=== PATIENT | male | born 1995 | race Hispanic/Latino ===

== ENCOUNTER 2017-11-17 17:40 | Emergency (ER) | payer OTHER, SELFPAY ==
[2017-11-17] MEDS: diphenhydrAMINE 50 MG CAP PO (19:42)
[2017-11-17] MEDS: ACETAMINOPHEN 325 MG TAB PO (19:42)
== END 2017-11-17 19:52 | disposition home or self-care (01) ==
LOC: M ED 17:40
DX: L25.8 Unspecified contact dermatitis due to other agents (principal); F17.210 Nicotine dependence, cigarettes, uncomplicated
CPT/HCPCS: 99283

== ENCOUNTER 2018-03-04 15:00 | Emergency (ER) | payer OTHER ==
[~2018-03-04] VITALS: Ht 177.8 cm; Wt 79.5 kg
[2018-03-04 15:01] VITALS: BP 142/66
[2018-03-04] MEDS ORDERED: KETOROLAC TROMETHAMINE 10 MG TAB PO ONE (15:15)
[2018-03-04] MEDS ORDERED: NAPR-50 PO (15:53)
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
== END 2018-03-04 16:02 | disposition home or self-care (01) ==
LOC: M ED 15:00
DX: S43.101A Unspecified dislocation of right acromioclavicular joint, initial encounter (principal); V43.52XA Car driver injured in collision with other type car in traffic accident, initial encounter; Y92.410 Unspecified street and highway as the place of occurrence of the external cause

== ENCOUNTER 2018-03-06 14:03 | Emergency (ER) | payer OTHER ==
[~2018-03-06] VITALS: Ht 177.8 cm; Wt 79.5 kg
[~2018-03-06 14:03] MED LIST: NAPR-50 PO
[2018-03-06 17:31] VITALS: BP 125/68
[2018-03-06] MEDS ORDERED: PERC5TAB12 PO (17:57)
[2018-03-06] MEDS ORDERED: PERCOCET 5MG/325MG TAB PO ONE (18:00)
== END 2018-03-06 18:06 | disposition home or self-care (01) ==
LOC: M ED 14:03
DX: M79.601 Pain in right arm (principal); R53.1 Weakness

== ENCOUNTER 2018-04-26 12:22 | Inpatient (IN) | payer OTHER ==
[~2018-04-26] VITALS: Ht 177.8 cm; Wt 77.0 kg
[~2018-04-26 12:22] MED LIST changes: +PERC5TAB12 PO
[2018-04-26] MEDS ORDERED: NICOTINE 21MG/24HR 1 EA TRANSDERMAL TD ONE (13:15)
[2018-04-26] MEDS ORDERED: IBUPROFEN 600 MG TAB PO ONE (13:15)
[2018-04-26 13:46] LABS: HEMOGLOBIN 15.3 g/dl (13.5-17.5); MEAN CORPUSCULAR HEMOGLOBIN 29.3 pg (27.0-33.0); MEAN CORPUSCULAR HGB CONC 34.8 g/dl (32.0-36.5); MEAN CORPUSCULAR VOLUME 84.3 fl (80.0-96.0); PLATELET COUNT, AUTOMATED 273 10^3/uL (150-450); RED BLOOD COUNT 5.22 10^6/uL (4.30-6.10); WHITE BLOOD COUNT 6.2 10^3/uL (4.0-10.0)
[2018-04-26 14:10] LABS: AMPHETAMINES LEVEL URINE NEGATIVE (NEGATIVE); BARBITURATES URINE NEGATIVE (NEGATIVE); BENZODIAZEPINES URINE NEGATIVE (NEGATIVE); CANNABINOIDS URINE NEGATIVE (NEGATIVE); COCAINE METABOLITE URINE NEGATIVE (NEGATIVE); METHADONE URINE NEGATIVE (NEGATIVE); OPIATES URINE NEGATIVE (NEGATIVE); PHENCYCLIDINE URINE NEGATIVE (NEGATIVE)
[2018-04-26 14:43] LABS: ACETAMINOPHEN LEVEL < 2.0 UG/ML (10.0-30.0); ALBUMIN 4.2 GM/DL (3.2-5.2); ALT/SGPT 38 U/L (12-78); BILIRUBIN,DIRECT 0.3 MG/DL (0.0-0.2); BILIRUBIN,TOTAL 1.1 MG/DL (0.2-1.0); BLOOD UREA NITROGEN 13 MG/DL (7-18); CALCIUM LEVEL 8.7 MG/DL (8.5-10.1); CARBON DIOXIDE LEVEL 29 MEQ/L (21-32); CHLORIDE LEVEL 105 MEQ/L (98-107); CREATININE FOR GFR 0.97 MG/DL (0.70-1.30); ETHYL ALCOHOL (ETHANOL) < 0.003 % (0.000-0.010); GLOMERULAR FILTRATION RATE > 60.0 (>60); GLUCOSE, FASTING 78 MG/DL (70-100); POTASSIUM SERUM 4.3 MEQ/L (3.5-5.1); SALICYLATE LEVEL < 1.7 MG/DL (5.0-30.0); SODIUM LEVEL 140 MEQ/L (136-145); THYROID STIMULATING HORMONE 0.925 uIU/ML (0.358-3.740); TOTAL PROTEIN 7.6 GM/DL (6.4-8.2)
[2018-04-26] MEDS ORDERED: MAALOX 30 ML SUSP *UDC PO PRN (17:15)
[2018-04-26] MEDS ORDERED: traZODone 50 MG TAB PO PRN (17:15)
[2018-04-26] MEDS ORDERED: MOM 30ML SUSPENSION UDC PO PRN (17:15)
[2018-04-26] MEDS ORDERED: ACETAMINOPHEN TAB 650MG DOSE (2X325MG) PO PRN (17:15)
[2018-04-26 19:28] VITALS: BP 131/73
[2018-04-27 06:38] VITALS: BP 113/55
--- NOTE | 2018-04-27 09:25 | HPEPDOC ---
[facility] Medical History & Physical Date of Admission Apr 26, 2018 History and Physical PCP: [facility] ATTENDING: Dr. Sharon Sawyer HPI: 23yoM admitted to [facility] for unspecified depressive disorder, being medically examined today. No acute medical complaints today. Denies any fevers, chills, weakness, fatigue, GERARD, CP, SOB, cough, palpitations, abdominal pain, N/V/D or changes in bowel or bladder habits. PMHx: Anxiety depression H/O SI insomnia Chronic shoulder pain/AC separation, follows with [facility]. PSHX: Lt knee surgery SOCHX: Resides in: [facility] Marital Status: Kids: 1 Employment: active duty Tobacco use: 1-2 can chewing tobacco per day ETOH: 2 x per week 5-6 drinks Illicit Drugs: Marijuana, states none since 20yo. IV Drug Use: Denies Tattoos done unprofessionally: x1 FAMHX: Pt states he was adopted and does not know any FH Siblings: 5 half siblings Alive, none known Children: Alive, well ROS: As noted in HPI, otherwise 11pt ROS of systems reviewed and unremarkable. PE: GEN: 23yoM, appears stated age. Well-nourished, well developed. No acute distress. Alert and oriented x 3. Guarded, short responses, flat affect. HEENT: Normocephalic, atraumatic. Pupils are equal, round, and reactive to light. Extraocular movements are intact. No nystagmus appreciated. Sclera are nonicteric. Conjunctiva without injection. Nose midline. Nasal turbinates without bogginess. EACs both patent BL. TMs both visualized and heart with good cone of light, no bulging or erythema. No facial asymmetry. Moist mucous membranes. Dentition fair. Pharynx pink and moist, no cobblestoning. Neck suppl e, trachea midline. No lymphadenopathy or thyromegaly appreciated. CHEST: Regular rate and rhythm, +S1, +S2 LUNGS: Clear to auscultation bilaterally. No wheezes, rales, or rhonchi. Breathing appears symmetric and easy. Patient is speaking in full sentences. No accessory muscle use. ABD: Round, soft, non-tender, non-distended. +Bowel sounds throughout. No rebound or guarding. No costovertebral angle tenderness. EXT: Pulses 2+ bilaterally dorsalis pedis and radial. No lower extremity edema appreciated. SKIN: [place], dry, warm. Capillary refill <2sec. No rashes. NEURO: Alert and oriented x 3. Cranial nerves III-XII are intact. No focal deficits appreciated. EKG: pending A&P: 23yoM admitted to [facility] for unspecified depressive disorder, 1. Psych. Plan per Psychiatry. Obtain baseline EKG to assure the safety of psychiatric medications as they can prolong the QT interval. 2. Nicotine dependence. Patch available. 3. tattoo done unprofessionally. Pt declines HIV/Hepatitis screening. 4. Follow up with PCP on discharge. 5. Chronic shoulder pain. Continue Tylenol 650mg Q6hr as needed. Ibuprofen 600mg Q8hr as needed. Continue Outpt F/U with [facility]. Consider pain mgmt consultation if needed. 6. Staff member Ed present throughout exam. Vital Signs Vital Signs Date Time Temp Pulse Resp B/P (MAP) Pulse Ox O2 Delivery O2 Flow Rate FiO2 04/27/18 06:38 98.2 57 12 113/55 (74) 04/26/18 17:56 100 04/26/18 13:54 Room Air Laboratory Data Labs 24H Laboratory Tests 2 04/26/18 13:25: Urine Amphetamines Screen NEGATIVE, Urine Benzodiazepines Screen NEGATIVE, Urine Opiates Screen NEGATIVE, Urine Methadone Screen NEGATIVE, Urine Barbiturates Screen NEGATIVE, Urine Phencyclidine Screen NEGATIVE, Urine Cocaine Metabolite Screen NEGATIVE, Urine Cannabinoids Screen NEGATIVE 04/26/18 13:32: Nucleated Red Blood Cells % (auto) 0.0, Anion Gap 6L, Glomerular Filtration Rate > 60.0, Calcium Level 8.7, Aspartate Amino Transf (AST/SGOT) 20, Alanine Aminotransferase (ALT/SGPT) 38, Alkaline Phosphatase 74, Total Bilirubin 1.1H, Direct Bilirubin 0.3H, Total Protein 7.6, Albumin 4.2, Albumin/Globulin Ratio 1.24, Thyroid Stimulating Hormone (TSH) 0.925, Salicylates Level < 1.7L, Acetaminophen Level < 2.0L, Ethyl Alcohol Level < 0.003 CBC/BMP Laboratory Tests 04/26/18 13:32 Red Blood Count 5.22, Mean Corpuscular Volume 84.3, Mean Corpuscular Hemoglobin 29.3, Mean Corpuscular Hemoglobin Concent 34.8, Red Cell Distribution Width 12.4 Home Medications No Active Prescriptions or Reported Meds Allergies Coded Allergies: No Known Drug Allergy (Verified Allergy, Unknown, 10/10/17) Anna Mckeon Apr 27, 2018 09:25
[2018-04-27] MEDS ORDERED: IBUPROFEN 600 MG TAB PO PRN (09:30)
[2018-04-27] MEDS: NICOTINE 14 MG/24 HR TRANSDERMAL TD SCH (09:31)
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
[2018-04-27 18:00] VITALS: BP 130/60
[2018-04-28 06:00] VITALS: BP 116/57
--- NOTE | 2018-04-28 07:24 | ECGEPIP ---
Stationary ECG Study [facility] Test Date: 2018-04-27 Pat Name: JOSE A OWENS Department: Room: [place] [address] Gender: M Toolmaker: : 1995 Requested By: Anna Mckeon Order Number: [id number] Reading MD: Josef Anderson Measurements Intervals [place] Rate: 73 P: 73 [place]: 151 QRS: 39 QRSD: 94 T: 54 QT: 365 QTc: 404 Interpretive Statements SINUS RHYTHM POSSIBLE LEFT VENTRICULAR HYPERTROPHY vs body habitus Comparison tracing not on file Electronically Signed On 04-28-2018 7:24:37 EST by Josef Anderson
[2018-04-28] MEDS: NICOTINE 14 MG/24 HR TRANSDERMAL TD SCH (09:35)
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
[2018-04-28 18:03] VITALS: BP 131/74
[2018-04-28] MEDS: ARIPiprazole 2 MG TAB PO SCH (21:20)
[2018-04-29 06:17] VITALS: BP 134/60
[2018-04-29] MEDS: NICOTINE 14 MG/24 HR TRANSDERMAL TD SCH (08:39)
[2018-04-29 18:36] VITALS: BP 110/58
[2018-04-29] MEDS ORDERED: traZODone 100 MG TAB PO PRN (20:30)
[2018-04-29] MEDS: ARIPiprazole 2 MG TAB PO SCH (21:02)
[2018-04-30 06:12] VITALS: BP 120/56
[2018-04-30] MEDS: NICOTINE 14 MG/24 HR TRANSDERMAL TD SCH (09:07)
[2018-04-30 18:00] VITALS: BP 122/68
[2018-04-30] MEDS: ARIPiprazole 2 MG TAB PO SCH (20:33)
[2018-04-30 21:00] VITALS: BP 126/72
[2018-05-01 06:19] VITALS: BP 139/62
[2018-05-01] MEDS: NICOTINE 14 MG/24 HR TRANSDERMAL TD SCH (09:00)
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
[2018-05-01] MEDS ORDERED: TRAZ10TA PO (09:16)
[2018-05-01] MEDS ORDERED: ARIP2TAB PO (09:16)
--- NOTE | 2018-05-01 15:43 | MHIPN ---
DATE: 04/29/2018 The patient states that he is still feeling depressed, although not as intense as before. His mood is about a 5 out of 10. He is not feeling hopeless or helpless. He still did not sleep that good and so we are going to increase the trazodone. MENTAL STATUS EXAMINATION: He is alert and oriented times three. Eye contact is fair. Psychomotor activity is normal. There is no formal thought disorder noted. Mood is depressed. Affect is full range and appropriate. He is not psychotic, suicidal or homicidal. Concentration is fair. Memory intact. Insight and judgment fair. DIAGNOSES: 1. Unspecified depressive disorder. 2. Unspecified anxiety disorder. TREATMENT PLAN: We will continue to monitor the patient for continued elevation and stabilization of his mood and for continued resolution of any suicidal ideations.
--- NOTE | 2018-05-01 15:45 | MHIPN ---
DATE: 04/30/2018 The patient today states, "I am feeling fantastic." He says that he slept fine with the increase in the trazodone and he has no complaints. MENTAL STATUS EXAMINATION: He is alert and oriented times three. Eye contact is fair. Psychomotor activity is normal. He is verbally spontaneous. There is no formal thought disorder noted. Mood is "fantastic." Affect is appropriate to mood. He is not psychotic, suicidal or homicidal. Concentration is fair. Memory intact. Insight and judgment fair. DIAGNOSES: 1. Unspecified depressive disorder. 2. Unspecified anxiety disorder. TREATMENT PLAN: We will continue to monitor the patient for continued elevation and stabilization of his mood and for continued resolution of any suicidal ideations.
== END 2018-05-01 11:15 | disposition home or self-care (01) | DRG 881 ==
LOC: M ED 12:22 → M ED INP 17:03 → M PSY 18:05
PROVIDERS: ADMIT Psychiatry & Neurology Psychiatry; ATTEND Psychiatry & Neurology Psychiatry
DX: F32.9 Major depressive disorder, single episode, unspecified (principal); R45.851 Suicidal ideations; F41.9 Anxiety disorder, unspecified; F43.23 Adjustment disorder with mixed anxiety and depressed mood; Z63.0 Problems in relationship with spouse or partner; G47.00 Insomnia, unspecified; F17.200 Nicotine dependence, unspecified, uncomplicated

== ENCOUNTER → 2018-09-22 | Outpatient (CLI) | payer OTHER ==
[~2018-09-22] MED LIST changes: +ARIP1TAB4 PO; +CONRAY-43 43% 50ML VIAL (Q9960) As Ordered ONE; -NAPR-50 PO; +NAPR-837 PO; +PROHANCE 279.3MG/ML 5ML VIAL (A9576) As Ordered ONE; +TRAZ10TA PO
--- NOTE | 2018-09-22 09:54 | REP ---
MR ARTHROGRAPHY RIGHT SHOULDER: With pre and post intra-articular gadolinium enhanced saline injected imaging: HISTORY: Glenoid labral lesion right shoulder. Assess anterior and posterior labrum and spinoglenoid notch cyst. Comparison radiographs are from March 04, 2018. TECHNIQUE: The injection procedure is performed and dictated separately. Pre and post intra-articular gadolinium enhanced saline injected imaging is acquired. Imaging planes include axial, oblique coronal, oblique sagittal and ABER projection images. T1-and T2-weighted scans are included with and without fat saturation. MRI FINDINGS: Pre-procedure imaging shows a para-labral cyst posteriorly and superiorly adjacent to the glenoid labrum. This measures 2.2 x 1.0 x 1.0 cm. It appears septated. It has a tract extending from the posterior superior aspect of the superior labrum into the cyst. The cyst along its medial wall abuts but does not appear to be centered in the spinoglenoid notch. Skeletal muscle signal intensity is normal on T1- and T2-weighted scans. The cystic lesion is felt to be associated with a nondisplaced SLAP tear of the superior labrum. A cortical and medullary bone signal intensity are normal. Glenohumeral and acromioclavicular joints are normally aligned. There is mild supraspinatus tendonitis tendinosis change on pre-injection imaging. Post injection imaging demonstrates good filling and enhancement of the right glenohumeral articulation. No loose body is seen. The infraspinatus, subscapularis, and biceps tendons are intact. There is no discernible supraspinatus or other cuff tear on post injection imaging. The para-labral cyst is not labeled with injected contrast at the time of scanning. The SLAP tear is visualized undermining the superior labrum. Abduction external rotation imaging shows no evidence of displaced anterior labral tear. IMPRESSION: There is evidence of the SLAP tear, nondisplaced but associated with a posterosuperior para-labral cyst which is fairly large. This medially abuts but does not appear to be centered on the spinoglenoid notch. Periarticular skeletal muscle signal intensity is normal. Electronically Signed by Deni López MD 09/22/2018 10:16 A
--- NOTE | 2018-09-22 16:05 | REP ---
Reason For Exam/Comment: Glenoid labral lesion of right shoulder Procedure: Right MRI arthrogram The procedure was performed by BRIAN Barrett, under the direct supervision of Dr. López. The benefits and risks including but not limited to pain, infection, bleeding and anaphylaxis were explained to the patient and informed consent was obtained both verbally and written. Directly prior to the start of the procedure, a formal timeout was completed in the procedure room. Technique: The right glenohumeral joint was localized using fluoroscopic guidance. The skin was prepped and draped in the usual sterile fashion. 4 mL of 1% lidocaine was used as a local anesthetic. Using fluoroscopic guidance a 22-gauge spinal needle was inserted and advanced to the right glenohumeral joint space. 1 mL of Conray 43 was injected to verify needle placement. 12 mL of a solution containing 20 ml of sterile saline and a 0.15 ml of ProHance was injected into the joint. The needle was removed and the patient was taken MRI for post procedural imaging. The patient tolerated the procedure well and there were no immediate complications. 0.1 minutes of fluoroscopy time was utilized for this procedure. Some fluoroscopic images are performed with last image hold technology. These images require no additional radiation. Reviewed by BRIAN Adams 09/22/2018 12:09 P Electronically Signed by Deni López MD 09/22/2018 03:56 P
== END ==
LOC: M RADPRO 06:22
PROVIDERS: ATTEND Orthopaedic Surgery Sports Medicine
DX: S43.431A Superior glenoid labrum lesion of right shoulder, initial encounter (principal)
CPT/HCPCS: 23350; 73223; 77002; A9576; Q9960